=== PATIENT | female | born 1995 | race American Indian/Alaskan Native ===

== ENCOUNTER 2017-06-14 16:13 | Emergency (ER) | payer MEDICAID ==
[2017-06-14 16:24] VITALS: O2SAT 100
[2017-06-14] MEDS ORDERED: Sodium Chloride 0.9% 1,000 ML IV ONE (16:31)
--- NOTE | 2017-06-14 16:39 | C.PDOC ---
History Of Present Illness 22 y/o female presents to ED with complaints of "heart burn" for 1 week worse when eating spicy food. Patient denies fever, chills, nausea, vomiting, diarrhea , back pain, urinary symptoms or any other complaints at this time. LMP 05/26/17 Time Seen by Provider: 06/14/17 16:27 Chief Complaint (Nursing): Abdominal Pain History Per: Patient History/Exam Limitations: no limitations Onset/Duration Of Symptoms: Days Current Symptoms Are (Timing): Still Present Context: Food Past Medical History Reviewed: Historical Data, Nursing Documentation, Vital Signs Vital Signs: Last Vital Signs Temp 98.1 F 06/14/17 16:23 Pulse 97 H 06/14/17 16:23 Resp 16 06/14/17 16:23 BP 140/90 06/14/17 16:23 Pulse Ox 100 06/14/17 17:20 - Medical History PMH: Denies: HIV, HTN, Seizures, Sexually Transmitted Disease Surgical History: No Surg Hx Family History: States: No Known Family Hx - Social History Hx Tobacco Use: No Hx Alcohol Use: No Hx Substance Use: No - Immunization History Hx Tetanus Toxoid Vaccination: Yes Hx Influenza Vaccination: No Hx Pneumococcal Vaccination: No Review Of Systems Except As Marked, All Systems Reviewed And Found Negative. Gastrointestinal: Positive for: Abdominal Pain. Negative for: Nausea, Vomiting Skin: Negative for: Rash Physical Exam - Physical Exam Appears: Non-toxic, No Acute Distress Skin: Normal Color, Warm, Dry, No Rash Head: Atraumatic, Normacephalic Eye(s): bilateral: Normal Inspection Oral Mucosa: Moist Neck: Normal ROM, Supple Chest: Symmetrical Cardiovascular: Rhythm Regular, No Murmur Respiratory: Normal Breath Sounds, No Rales, No Rhonchi, No Wheezing Gastrointestinal/Abdominal: Soft, Tenderness (Mild epigastric), No Guarding, No Rebound Neurological/Psych: Oriented x3, Normal Speech ED Course And Treatment - Laboratory Results Result Diagrams: 06/14/17 16:47 06/14/17 16:47 O2 Sat by Pulse Oximetry: 100 (RA) Pulse Ox Interpretation: Normal Medical Decision Making Medical Decision Making: abdominal pain - supsect gastrits, vs pud, vs gerd. labs imaging pending 515: pt reassesed: symptoms improved. no symptoms nows. no ttp. no ruq ttp. advise outpt f/u and return precautions Disposition - Disposition Referrals: Darvin Negrete MD [Staff Provider] - [employer] [Outside] [facility] [Outside] Disposition: HOME/ ROUTINE Disposition Time: 17:18 Condition: STABLE Additional Instructions: please follow up with specialist. return to er with worsening symptoms or concerns. 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 - Scribe Statement The provider has reviewed the documentation as recorded by the Scribmarcin Flores All medical record entries made by the Premaibmarcin were at my direction and personally dictated by me. I have reviewed the chart and agree that the record accurately reflects my personal performance of the history, physical exam, medical decision making, and the department course for this patient. I have also personally directed, reviewed, and agree with the discharge instructions and disposition.
--- NOTE | 2017-06-14 16:51 | RAD ---
HISTORY: abd pain COMPARISON: None available. TECHNIQUE: Chest PA and lateral FINDINGS: LUNGS: No focal consolidation. Please note that chest x-ray has limited sensitivity for the detection of pulmonary masses. PLEURA: No significant pleural effusion identified. No definite pneumothorax . CARDIOVASCULAR: The cardiomediastinal silhouette appears within normal limits of size. OSSEOUS STRUCTURES: No acute osseous abnormality identified. VISUALIZED UPPER ABDOMEN: Unremarkable. OTHER FINDINGS: None. IMPRESSION: No focal consolidation, significant pleural effusion, or definite pneumothorax identified.
[2017-06-14 16:57] LABS: BASO % 0.4 % (0.0-2.0); EOS % 0.2 % (0.0-4.0); HEMATOCRIT 36.4 % (34.0-47.0); LYMPH # 1.8 K/uL (1.0-4.3); MEAN CELL VOLUME 82.8 fL (81.0-99.0); MEAN CORPUSCULAR HEMOGLOBIN 27.3 pg (27.0-31.0); MEAN CORPUSCULAR HGB CONC 32.9 g/dL (33.0-37.0); MEAN PLATELET VOLUME 9.7 fL (7.2-11.7); MONO # 0.6 K/uL (0.0-0.8); MONO % 14.2 % (0.0-10.0); RED CELL DISTRIBUTION WIDTH 14.8 % (11.5-14.5); WHITE BLOOD COUNT 3.9 K/uL (4.8-10.8)
[2017-06-14] MEDS ORDERED: Sodium Chloride 0.9% 1,000 ML ONE (16:57)
[2017-06-14 17:03] LABS: INR 1.2
[2017-06-14 17:05] LABS: RBC URINE 1 /hpf (0-3); URINE BILIRUBIN NEGATIVE (NEGATIVE); URINE BLOOD NEGATIVE (NEGATIVE); URINE COLOR Yellow (YELLOW); URINE GLUCOSE (UA) NORMAL (Normal); URINE KETONE NEGATIVE (NEGATIVE); URINE LEUKOCYTE ESTERASE NEG Leu/uL (Negative); URINE PROTEIN NEGATIVE (NEGATIVE); URINE UROBILINOGEN NORMAL mg/dL (0.2-1.0); WBC URINE 1 /hpf (0-5)
[2017-06-14 17:06] LABS: CHLORIDE 101 mmol/L (98-107); POTASSIUM 3.7 mmol/L (3.6-5.2); SODIUM 140 mmol/L (132-148)
[2017-06-14 17:08] LABS: AST/SGOT 29 U/L (14-36); BILIRUBIN,TOTAL 0.5 mg/dL (0.2-1.3); CARBON DIOXIDE 25 mmol/L (22-30); GFR AFRICAN-AMERICAN > 60
[2017-06-14 17:09] LABS: ALB/GLOB RATIO 1.3 (1.0-2.1); ALKALINE PHOSPHATASE 59 U/L (38-126); ALT/SGPT 26 U/L (9-52); BLOOD UREA NITROGEN 7 mg/dL (7-17); CALCIUM 9.3 mg/dl (8.6-10.4); GLUCOSE,RANDOM 78 mg/dL (65-105); TOTAL PROTEIN 8.2 g/dL (6.3-8.3)
[2017-06-14 17:48] VITALS: BP 128/83; PULSE 62; RESP 20; TEMP 98.8
== END 2017-06-14 17:48 | disposition home or self-care (01) ==
LOC: C.ER 16:13
DX: R10.9 Unspecified abdominal pain (principal)
CPT/HCPCS: 71020; 80053; 81001; 83690; 84703; 85025; 85610; 85730; 96361; 96374; 99285; C9113; J7040

== ENCOUNTER 2017-12-10 14:14 | Emergency (ER) | payer MEDICAID ==
[2017-12-10 14:24] VITALS: BMI 23.0
[2017-12-10 14:25] VITALS: BP 135/82; PULSE 55; RESP 18; TEMP 97.9; O2SAT 97
--- NOTE | 2017-12-10 14:45 | C.PDOC ---
History Of Present Illness 22 year old female presents to ED with complaints of sore throat for one week, and symptoms are not improving. She reports pain with swallowing. Denies any fever, ear pain, headache, difficulty swallowing. Time Seen by Provider: 12/10/17 14:33 Chief Complaint (Nursing): ENT Problem History Per: Patient History/Exam Limitations: None Onset/Duration Of Symptoms: Days (1 week) Current Symptoms Are (Timing): Still Present Quality (Mouth/Throat): Tenderness Past Medical History Reviewed: Historical Data, Nursing Documentation, Vital Signs Vital Signs: Last Vital Signs Temp 97.9 F 12/10/17 14:24 Pulse 55 L 12/10/17 14:24 Resp 18 12/10/17 14:24 BP 135/82 12/10/17 14:24 Pulse Ox 97 12/10/17 14:48 - Medical History PMH: Denies: HIV, HTN, Seizures, Sexually Transmitted Disease Family History: States: Unknown Family Hx - Social History Hx Tobacco Use: No Hx Alcohol Use: No Hx Substance Use: No - Immunization History Hx Tetanus Toxoid Vaccination: Yes Hx Influenza Vaccination: No Hx Pneumococcal Vaccination: No Review Of Systems Except As Marked, All Systems Reviewed And Found Negative. Constitutional: Negative for: Fever, Chills ENT: Positive for: Throat Pain. Negative for: Ear Pain, Nose Discharge, Nose Congestion, Mouth Pain Respiratory: Negative for: Cough Neurological: Negative for: Headache, Dizziness Physical Exam - Physical Exam Appears: Non-toxic, No Acute Distress Skin: Normal Color, Warm, Dry Head: Atraumatic, Normacephalic Eye(s): bilateral: Normal Inspection Ear(s): Bilateral: Normal Nose: Normal Oral Mucosa: Moist Tongue: Normal Appearing Lips: Normal Appearing Throat: Erythema (pharyngeal and tonsilar erythema), No Exudate, No Drooling, Other (uvula midline) Neck: Normal ROM, Supple Chest: Symmetrical Cardiovascular: Rhythm Regular, No Murmur Respiratory: Normal Breath Sounds, No Rales, No Rhonchi, No Wheezing Extremity: Bilateral: Atraumatic, Normal ROM Neurological/Psych: Oriented x3, Normal Speech ED Course And Treatment O2 Sat by Pulse Oximetry: 97 (RA) Pulse Ox Interpretation: Normal Medical Decision Making Medical Decision Making: Patient appears well nontoxic and in no distress. Exam shows pharyngeal erythema and no signs of peritonsilar abscess. Will treat with Amoxicillin. Advise follow up with PCP or clinic. Disposition Counseled Patient/Family Regarding: Diagnosis, Need For Followup, Rx Given - Disposition Disposition: HOME/ ROUTINE Disposition Time: 14:47 Condition: GOOD Additional Instructions: Take antibiotic twice a day for 10 days. Take Tylenol or Motrin alternating every 4-6 hours for Fever 100.4F or higher. Rest and drink plenty of fluids to prevent dehydration. May also try lozenges, or cepacol spray available over the counter. Follow up with your primary medical doctor or clinic in 2-5 days for further evaluation. Return to the emergency department at any time if symptoms persist or worsen. Prescriptions: Amoxicillin [Amoxil 500 mg Cap] 500 mg PO BID #20 cap Instructions: Sore Throat, Adult (DC) Forms: Work/School/Gym Excuse, [facility] (Greenlandic) - POA Present On Arrival: None - Clinical Impression Clinical Impression: Pharyngitis - PA / SPECIAL DELIVERY CLERK / Resident Statement MD/DO has reviewed & agrees with the documentation as recorded. - Scribe Statement The provider has reviewed the documentation as recorded by the Premaibmarcin Shelley All medical record entries made by the Paula were at my direction and personally dictated by me. I have reviewed the chart and agree that the record accurately reflects my personal performance of the history, physical exam, medical decision making, and the department course for this patient. I have also personally directed, reviewed, and agree with the discharge instructions and disposition.
== END 2017-12-10 14:59 | disposition home or self-care (01) ==
LOC: C.ER 14:14
DX: J02.9 Acute pharyngitis, unspecified (principal)

== ENCOUNTER 2018-01-30 14:57 | Emergency (ER) | payer MEDICAID ==
[2018-01-30 14:57] VITALS: BMI 23.0
[2018-01-30 15:12] VITALS: BP 117/76; PULSE 61; RESP 20; TEMP 97.3; O2SAT 100
--- NOTE | 2018-01-30 15:56 | C.PDOC ---
History Of Present Illness 22 y/o female presents to the ED complaining that her seasonal allergies are beginning to flare. Patient reports having congestion, runny nose. No cough, fever, or headache, rash. No recent travel. Time Seen by Provider: 01/30/18 15:41 Chief Complaint (Nursing): ENT Problem History Per: Patient History/Exam Limitations: None Onset/Duration Of Symptoms: Days Current Symptoms Are (Timing): Still Present Past Medical History Reviewed: Historical Data, Nursing Documentation, Vital Signs Vital Signs: Last Vital Signs Temp 97.3 F L 01/30/18 15:09 Pulse 61 01/30/18 15:09 Resp 20 01/30/18 16:00 BP 117/76 01/30/18 15:09 Pulse Ox 100 01/30/18 15:56 - Medical History PMH: Denies: HIV, HTN, Seizures, Sexually Transmitted Disease Other PMH: seasonal allergies Family History: States: Unknown Family Hx - Social History Hx Tobacco Use: No Hx Alcohol Use: No Hx Substance Use: No - Immunization History Hx Tetanus Toxoid Vaccination: Yes Hx Influenza Vaccination: No Hx Pneumococcal Vaccination: No Review Of Systems Except As Marked, All Systems Reviewed And Found Negative. ENT: Positive for: Nose Congestion Physical Exam - Physical Exam Appears: Non-toxic, No Acute Distress Skin: Normal Color, Warm, Dry Head: Atraumatic, Normacephalic Eye(s): bilateral: Normal Inspection, PERRL, EOMI Ear(s): Bilateral: Normal Nose: Normal, Other (Nasal turbinates clear) Oral Mucosa: Moist Throat: Normal, No Erythema, No Exudate Neck: Normal ROM, Supple Cardiovascular: Rhythm Regular, No Murmur Respiratory: Normal Breath Sounds, No Rales, No Rhonchi, No Wheezing Extremity: Bilateral: Atraumatic, Normal Color And Temperature Neurological/Psych: Oriented x3 ED Course And Treatment O2 Sat by Pulse Oximetry: 100 (RA) Pulse Ox Interpretation: Normal Medical Decision Making Medical Decision Making: Impression: Seasonal allergies Plan: Patient will be discharged home with Claritin prescription. Advised to f/u with PMD in 1-2 days. Disposition Counseled Patient/Family Regarding: Need For Followup, Rx Given - Disposition Disposition: HOME/ ROUTINE Disposition Time: 15:54 Condition: STABLE Additional Instructions: follow up with your doctor in 2 days call to make an appointment continue your home medications return to ER if symptoms worsens or progress Prescriptions: Loratadine [Claritin] 10 mg PO DAILY PRN #20 tab PRN Reason: Other Instructions: Seasonal Allergies in Adults Forms: General Discharge Instructions, Work/School/Gym Excuse, [facility] (Filipino) - POA Present On Arrival: None - Clinical Impression Clinical Impression: Seasonal allergies - Scribe Statement The provider has reviewed the documentation as recorded by the Scribe (Shi Michel) Provider Attestation: All medical record entries made by the Scribe were at my direction and personally dictated by me. I have reviewed the chart and agree that the record accurately reflects my personal performance of the history, physical exam, medical decision making, and the department course for this patient. I have also personally directed, reviewed, and agree with the discharge instructions and disposition.
== END 2018-01-30 16:00 | disposition home or self-care (01) ==
LOC: C.ER 14:57
DX: J30.2 Other seasonal allergic rhinitis (principal)

== ENCOUNTER 2018-07-20 14:02 | Emergency (ER) | payer MEDICAID ==
[2018-07-20 14:02] VITALS: BMI 23.0
[2018-07-20 14:31] VITALS: RESP 16; TEMP 98.4
[2018-07-20 15:49] LABS: SQUAMOUS EPITHIAL < 1 /hpf (0-5); URINE BILIRUBIN NEGATIVE (NEGATIVE); URINE BLOOD 2+ (NEGATIVE); URINE CLARITY Clear (Clear); URINE COLOR Yellow (YELLOW); URINE GLUCOSE (UA) NORMAL (Normal); URINE LEUKOCYTE ESTERASE NEG Leu/uL (Negative); URINE PROTEIN NEGATIVE (NEGATIVE); URINE UROBILINOGEN NORMAL mg/dL (0.2-1.0)
[2018-07-20 15:51] LABS: BASO % 0.6 % (0.0-2.0); HEMOGLOBIN 11.7 g/dL (11.0-16.0); LYMPH # 1.8 K/uL (1.0-4.3); LYMPH % 44.5 % (20.0-40.0); MEAN CELL VOLUME 86.3 fL (81.0-99.0); MEAN CORPUSCULAR HEMOGLOBIN 28.2 pg (27.0-31.0); MEAN CORPUSCULAR HGB CONC 32.7 g/dL (33.0-37.0); MEAN PLATELET VOLUME 8.7 fL (7.2-11.7); MONO # 0.4 K/uL (0.0-0.8); MONO % 9.6 % (0.0-10.0); NEUT # 1.8 K/uL (1.8-7.0); NEUT % 44.3 % (50.0-75.0); NRBC % 0.1 % (0.0-2.0); RBC 4.16 Mil/uL (3.80-5.20); RED CELL DISTRIBUTION WIDTH 13.2 % (11.5-14.5); WHITE BLOOD COUNT 4.1 K/uL (4.8-10.8)
[2018-07-20 15:59] LABS: INR 1.2
--- NOTE | 2018-07-20 16:00 | C.PDOC ---
History Of Present Illness 23 year old female presents to the ED for evaluation of generalized weakness which began yesterday. Patient also states she has been experiencing heavy vaginal bleeding with each period for the past 5 months. She is currently on her menstrual period. 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 Patient also reports some nausea. She denies vomiting. Time Seen by Provider: 07/20/18 15:22 Chief Complaint (Nursing): Female Genitourinary History Per: Patient History/Exam Limitations: no limitations Onset/Duration Of Symptoms: Days Current Symptoms Are (Timing): Better Associated Symptoms: Nausea. denies: Urinary Symptoms Additional History Per: Patient Last Menstral Period: current Past Medical History Reviewed: Historical Data, Nursing Documentation, Vital Signs Vital Signs: Last Vital Signs Temp 98.4 F 07/20/18 14:26 Pulse 61 07/20/18 14:26 Resp 16 07/20/18 14:26 BP 132/85 07/20/18 14:26 Pulse Ox 99 07/20/18 14:26 - Medical History PMH: No Chronic Diseases Denies: HIV, HTN, Seizures, Sexually Transmitted Disease Surgical History: No Surg Hx Family History: States: Unknown Family Hx - Social History Hx Tobacco Use: No Hx Alcohol Use: No Hx Substance Use: No - Immunization History Hx Tetanus Toxoid Vaccination: Yes Hx Influenza Vaccination: No Hx Pneumococcal Vaccination: No Review Of Systems Constitutional: Positive for: Weakness Gastrointestinal: Positive for: Nausea. Negative for: Vomiting Genitourinary: Positive for: Vaginal Bleeding Physical Exam - Physical Exam Appears: Non-toxic, No Acute Distress Skin: Normal Color, Warm, Dry Head: Atraumatic, Normacephalic Eye(s): bilateral: Normal Inspection, Other (no conjunctival pallor ) Oral Mucosa: Moist Neck: Supple Chest: Symmetrical, No Deformity, No Tenderness Cardiovascular: Rhythm Regular, No Murmur Respiratory: Normal Breath Sounds, No Rales, No Rhonchi, No Wheezing Gastrointestinal/Abdominal: Soft, No Tenderness, No Guarding, No Rebound Extremity: Normal ROM, Capillary Refill (less than 2 seconds ) Neurological/Psych: Oriented x3, Normal Speech, Normal Cognition ED Course And Treatment - Laboratory Results Result Diagrams: 07/20/18 15:40 07/20/18 15:40 O2 Sat by Pulse Oximetry: 99 (on RA) Pulse Ox Interpretation: Normal Medical Decision Making Medical Decision Making: Assessment: menses Plan: * bloodwork * urinalysis * reassess and disposition Progress: Bloodwork and urinalysis ordered and reviewed. 1618 - patient well appearing with normal menses. Will discharge home to follow up with teacher of the handicapped within 2 days. Disposition Counseled Patient/Family Regarding: Studies Performed, Diagnosis, Need For Followup - Disposition Disposition: HOME/ ROUTINE Disposition Time: 16:19 Condition: STABLE Additional Instructions: follow up with your teacher of the handicapped within 2 days call to make an appointment your blood count is normal return to ER if symptoms worsens or progress Instructions: Menstruation Forms: General Discharge Instructions, [facility] (Turkmen), Work/School/Gym Excuse - Clinical Impression Clinical Impression: Menstruation - Scribe Statement The provider has reviewed the documentation as recorded by the Scribe (Kelly Shelley) Provider Attestation: All medical record entries made by the Scribe were at my direction and personally dictated by me. I have reviewed the chart and agree that the record accurately reflects my personal performance of the history, physical exam, medical decision making, and the department course for this patient. I have also personally directed, reviewed, and agree with the discharge instructions and disposition.
[2018-07-20 16:04] LABS: ALB/GLOB RATIO 1.3 (1.0-2.1); ALBUMIN 4.5 g/dL (3.5-5.0); ALT/SGPT 15 U/L (9-52); AST/SGOT 17 U/L (14-36); BLOOD UREA NITROGEN 9 mg/dL (7-17); CALCIUM 9.5 mg/dl (8.6-10.4); GFR NON-AFRICAN AMERICAN > 60
[2018-07-20 16:36] VITALS: BP 110/68; PULSE 81; O2SAT 98
== END 2018-07-20 16:36 | disposition home or self-care (01) ==
LOC: C.ER 14:02
DX: N93.9 Abnormal uterine and vaginal bleeding, unspecified (principal)